=== PATIENT | female | born 1955 | race Caucasian/White ===

== ENCOUNTER 2017-04-13 00:41 | Emergency (ER) | payer OTHER ==
[2017-04-13 00:47] VITALS: BMI 29.2
[2017-04-13] MEDS ORDERED: ACETAMINOPHEN 500 MG TABLET (FP) PO ONE (01:11)
[2017-04-13 01:59] LABS: BASOPHIL 0.5 % (0-2.0); EOSINOPHIL 1.9 % (0-4.5); MCH 25.6 pg (25.7-33.7); MCHC 32.4 g/dl (32.0-36.0); MEAN CELL VOLUME 78.9 fl (80-96); MEAN PLT VOLUME 8.4 fl (7.5-11.1); NEUTROPHILS 63.1 % (42.8-82.8); PLATELET COUNT 240 K/MM3 (134-434); RDW 14.1 % (11.6-15.6); WHITE BLOOD COUNT 6.4 K/mm3 (4.0-10.0)
[2017-04-13] MEDS ORDERED: ACETAMINOPHEN 325 MG TABLET (FP) ONE (02:01)
--- NOTE | 2017-04-13 02:08 | PDOC ---
History of Present Illness - General Chief Complaint: Pain Stated Complaint: NECK PAIN Time Seen by Provider: 04/13/17 00:58 History Source: Patient Exam Limitations: No Limitations - History of Present Illness Initial Comments: 04/13/17 02:06 61yo Female patient presents to ED c/o chest pain and neck pain. Patient report she was watching TV when she feel asleep. Upon waking up patient felt pressure in chest, with right arm numbness and neck pain. She denies OTC medication use. Past History - Travel Traveled outside of the country in the last 30 days: No Close contact w/someone who was outside of country & ill: No - Past Medical History Allergies/Adverse Reactions: Allergies Allergy/AdvReac Type Severity Reaction Status Date / Time No Known Allergies Allergy Verified 04/13/17 00:45 Home Medications: Ambulatory Orders Aspirin [ASA -] 81 mg PO DAILY 07/23/14 Losartan Potassium 50 mg PO DAILY 07/23/14 Anemia: No Asthma: No Cancer: No Cardiac Disorders: No CVA: No COPD: No CHF: No Dementia: No Diabetes: No GI Disorders: No Disorders: No HTN: Yes Hypercholesterolemia: No Liver Disease: No Psychiatric Problems: Yes (depression) Seizures: No Thyroid Disease: No - Surgical History Abdominal Surgery: No (Hernia Repair) Appendectomy: No Cardiac Surgery: No Cholecystectomy: No Lung Surgery: No Neurologic Surgery: No Orthopedic Surgery: No - Immunization History Immunization Up to Date: Yes - Psycho/Social/Smoking Cessation Hx Anxiety: No Suicidal Ideation: No Smoking Status: No Smoking History: Never smoked Have you smoked in the past 12 months: No Number of Cigarettes Smoked Daily: 0 Information on smoking cessation initiated: No Hx Alcohol Use: No Drug/Substance Use Hx: No Substance Use Type: None Hx Substance Use Treatment: No Cardiac Specific PMH - Complaint Specific PMHX Pacemaker: No Review of Systems - Review of Systems Able to Perform ROS?: Yes Is the patient limited Maori proficient: No Constitutional: No: Chills, Fever Respiratory: No: Cough, Wheezing Cardiac (ROS): Yes: Chest Pain, Chest Tightness. No: Lightheadedness, Palpitations ABD/GI: No: Nausea, Poor Appetite, Poor Fluid Intake, Rectal Bleeding, Vomiting : No: Dysuria, Flank Pain, Hematuria Musculoskeletal: Yes: Neck Pain. No: Back Pain Integumentary: No: Bruising, Erythema, Rash Neurological: Yes: Headache. No: Seizure All Other Systems: Reviewed and Negative *Physical Exam - Vital Signs Last Vital Signs Temp Pulse Resp BP Pulse Ox 97.6 F 78 18 158/87 98 04/13/17 00:45 04/13/17 00:45 04/13/17 00:45 04/13/17 00:45 04/13/17 00:45 - Physical Exam General Appearance: Yes: Nourished, Appropriately Dressed. No: Apparent Distress, Mild Distress, Moderate Distress, Severe Distress Neck: positive: Trachea midline, Supple. negative: Decreased range of motion, Stridor, Lymphadenopathy (R), Lymphadenopathy (L), Tender lateral, Tender midline Respiratory/Chest: positive: Lungs Clear, Normal Breath Sounds. negative: Chest Tender, Respiratory Distress, Accessory Muscle Use, Labored Respiration, Rapid RR, Stridor, Wheezing Cardiovascular: positive: Regular Rhythm, Regular Rate Gastrointestinal/Abdominal: positive: Normal Bowel Sounds, Soft, Distended. negative: Tender, Guarding, Rebound, Tenderness Musculoskeletal: positive: Normal Inspection. negative: CVA Tenderness, Decreased Range of Motion, Muscle Spasm, Vertebral Tenderness Extremity: positive: Normal Capillary Refill, Normal Inspection, Normal Range of Motion. negative: Swelling, Calf Tenderness, Erythema, Inflammation Integumentary: positive: Normal Color, Dry, Warm. negative: Moist, Hives, Swelling, Bruising Neurologic: positive: compugraph operator II-XII NML intact, Fully Oriented, Alert, Normal Mood/ Affect, Normal Response, Motor Strength 5/5 ED Treatment Course - LABORATORY CBC & Chemistry Diagram: 04/13/17 01:44 04/13/17 01:44 - ADDITIONAL ORDERS Additional order review: 04/13/17 01:44 RBC 4.76 MCV 78.9 L MCHC 32.4 RDW 14.1 MPV 8.4 Neutrophils % 63.1 Lymphocytes % 26.1 Monocytes % 8.4 Eosinophils % 1.9 Basophils % 0.5 - RADIOLOGY Radiology Studies Ordered: Category Date Time Status HEAD CT WITHOUT CONTRAST [CT] Stat CT Scan 04/13/17 01:11 Ordered CHEST PA & LAT [RAD] Stat Radiology 04/13/17 01:11 Ordered
[2017-04-13 02:27] LABS: URINE APPEARANCE CLEAR; URINE BILIRUBIN NEGATIVE (NEGATIVE); URINE COLOR COLORLESS; URINE GLUCOSE (UA) NEGATIVE (NEGATIVE); URINE KETONE NEGATIVE (NEGATIVE); URINE LEUK ESTERASE NEGATIVE (NEGATIVE); URINE NITRITE NEGATIVE (NEGATIVE); URINE PROTEIN NEGATIVE (NEGATIVE); URINE UROBILINOGEN NEGATIVE E.U./dl (0.2-1.0)
[2017-04-13 02:30] LABS: URINE BLOOD 1+ (NEGATIVE)
[2017-04-13 02:32] LABS: URINE RBC 1 /hpf (0-3)
[2017-04-13 02:36] LABS: ALBUMIN 3.6 g/dl (3.4-5.0); ANION GAP 12 (8-16); BILIRUBIN,TOTAL 0.4 mg/dL (0.2-1.0); CALCIUM 9.1 mg/dL (8.5-10.1); CO2 24 mmol/L (21-32); CREATININE 0.9 mg/dL (0.55-1.02); GLUCOSE,RANDOM 123 mg/dL (74-106); SGOT/AST 24 U/L (15-37); SGPT/ALT 27 U/L (12-78); TOT PROT 6.9 g/dl (6.4-8.2)
[2017-04-13 02:39] LABS: ALK PHOS 75 U/L (45-117); TROPONIN I < 0.02 ng/ml (0.00-0.05)
[2017-04-13 08:11] LABS: TROPONIN I < 0.02 ng/ml (0.00-0.05)
--- NOTE | 2017-04-13 08:54 | PDOC ---
*Physical Exam - Vital Signs Last Vital Signs Temp Pulse Resp BP Pulse Ox 97.6 F 78 18 158/87 98 04/13/17 00:45 04/13/17 00:45 04/13/17 00:45 04/13/17 00:45 04/13/17 00:45 ED Treatment Course - LABORATORY CBC & Chemistry Diagram: 04/13/17 01:44 04/13/17 01:44 - ADDITIONAL ORDERS Additional order review: Laboratory Results 04/13/17 04/13/17 04/13/17 07:20 02:23 01:44 Sodium 142 Potassium 3.7 Chloride 106 Carbon Dioxide 24 Anion Gap 12 BUN 15 Creatinine 0.9 Creat Clearance w eGFR > 60 Random Glucose 123 H Calcium 9.1 Total Bilirubin 0.4 D AST 24 D ALT 27 Alkaline Phosphatase 75 Creatine Kinase 150 160 CK-MB (CK-2) < 1.000 1.201 Troponin I < 0.02 < 0.02 Total Protein 6.9 Albumin 3.6 Urine Color Colorless Urine Appearance Clear Urine pH 7.0 Urine Protein Negative Urine Glucose (UA) Negative Urine Ketones Negative Urine Blood 1+ H Urine Nitrite Negative Urine Bilirubin Negative Urine Urobilinogen Negative Ur Leukocyte Esterase Negative Urine RBC 1 Urine WBC None 04/13/17 01:44 RBC 4.76 MCV 78.9 L MCHC 32.4 RDW 14.1 MPV 8.4 Neutrophils % 63.1 Lymphocytes % 26.1 Monocytes % 8.4 Eosinophils % 1.9 Basophils % 0.5 - Medications Given in the ED: ED Medications Discontinued Medications Generic Name Dose Route Start Last Admin Trade Name Freq PRN Reason Stop Dose Admin Acetaminophen 1,000 mg 04/13/17 01:11 04/13/17 02:06 Tylenol - PO 04/13/17 01:12 1,000 mg ONCE ONE Administration Progress Note - Progress Note Progress Note: This patient was endorsed to me by Dr. Bang at 7 AM pending repeat troponin which was negative. I have reevaluated the patient at this time and she is well- appearing and is feeling improved. I've instructed the patient via oil and gas field technician to follow-up with her primary care physician within the next week and return to the emergency department if her symptoms persist, worsen, or new symptoms arise. *DC/Admit/Observation/Transfer Diagnosis at time of Disposition: Chest pain - Discharge Dispostion Disposition: HOME Condition at time of disposition: Stable Admit: No - Patient Instructions Printed Discharge Instructions: DI for Atypical Chest Pain Additional Instructions: Follow up with your primary care physician within one week and return to the emergency department if your symptoms persist, worsen, or new symptoms arise.
[2017-04-13 09:38] VITALS: BP 128/73; PULSE 60; TEMP 98.7
--- NOTE | 2017-04-13 16:26 | EKG ---
Test Reason : Blood Pressure : / mmHG Vent. Rate : 060 BPM Atrial Rate : 060 BPM P-R Int : 150 ms QRS Dur : 080 ms QT Int : 396 ms P-R-T Axes : 059 -12 -11 degrees QTc Int : 396 ms NORMAL SINUS RHYTHM POSSIBLE LEFT ATRIAL ENLARGEMENT BORDERLINE ECG WHEN COMPARED WITH ECG OF 24-JUL-2014 17:27, NO SIGNIFICANT CHANGE WAS FOUND Confirmed by BERONICA ELY MD ([id number]) on 04/13/2017 4:26:10 PM Referred By: Confirmed By:BERONICA ELY MD
== END 2017-04-13 09:43 | disposition home or self-care (01) ==
LOC: JER 00:41
DX: R07.89 Other chest pain (principal); I10 Essential (primary) hypertension; F32.9 Major depressive disorder, single episode, unspecified
CPT/HCPCS: 36415; 70450-TC; 71020-TC; 80053; 81003; 81015; 82550; 82553; 84484; 85025; 87086; 93005; 93010; 99285-25

== ENCOUNTER 2017-04-23 01:12 | Emergency (ER) | payer SELFPAY ==
--- NOTE | 2017-04-23 01:48 | PDOC ---
History of Present Illness - General History Source: Patient Exam Limitations: No Limitations - History of Present Illness Initial Comments: 04/23/17 02:16 The patient is a 61 year old female with significant past medical history of hypertension who presents to the ED for chest discomfort prior to arrival. Patient describes chest discomfort as a pressure-like sensation that radiated down the left arm and up the left-side of the neck. States she ran out of her blood pressure medications yesterday and after receiving them last night she took them prior to going to bed. Patient reports waking up prior to arrival with chest pressure with associated SOB. At time of evaluation, patient reports she still has chest pressure. Denies lightheadedness, diaphoresis, leg swelling , nausea, or vomiting. The patient denies fever, chills, cough, abdominal pain, and diarrhea. Allergies: NKDA Social History: No alcohol, tobacco, or drug use reported. Past Surgical History: hernia repair, PCP: Dr. Stevie Varma <Jacquelyn Ro - Last Filed: 04/23/17 02:17> - General History Source: Patient <Reg Cui - Last Filed: 04/23/17 04:38> - General Chief Complaint: Blood Pressure Problem Stated Complaint: BLOOD PRESSURE PROBLEM Time Seen by Provider: 04/23/17 01:44 Past History <Jacquelyn Ro - Last Filed: 04/23/17 02:17> - Past Medical History Anemia: No Asthma: No Cancer: No Cardiac Disorders: No CVA: No COPD: No CHF: No Dementia: No Diabetes: No GI Disorders: No Disorders: No HTN: Yes Hypercholesterolemia: No Liver Disease: No Psychiatric Problems: Yes (depression) Seizures: No Thyroid Disease: No - Surgical History Abdominal Surgery: No (Hernia Repair) Appendectomy: No Cardiac Surgery: No Cholecystectomy: No Lung Surgery: No Neurologic Surgery: No Orthopedic Surgery: No - Immunization History Immunization Up to Date: Yes - Psycho/Social/Smoking Cessation Hx Anxiety: No Suicidal Ideation: No Smoking Status: No Smoking History: Never smoked Have you smoked in the past 12 months: No Number of Cigarettes Smoked Daily: 0 Information on smoking cessation initiated: No Hx Alcohol Use: No Drug/Substance Use Hx: No Substance Use Type: None Hx Substance Use Treatment: No <Reg Cui - Last Filed: 04/23/17 04:38> - Past Medical History Allergies/Adverse Reactions: Allergies Allergy/AdvReac Type Severity Reaction Status Date / Time No Known Allergies Allergy Verified 04/13/17 00:45 Home Medications: Ambulatory Orders Aspirin [ASA -] 81 mg PO DAILY 07/23/14 Losartan Potassium 50 mg PO DAILY 07/23/14 Paroxetine HCl 10 mg PO DAILY 04/23/17 Review of Systems - Review of Systems Able to Perform ROS?: Yes Comments:: 04/23/17 02:16 CONSTITUTIONAL: Absent: fever, no chills, no fatigue EYES: Absent: visual changes ENT: Absent: ear pain, no sore throat CARDIOVASCULAR: +left-sided chest pressure radiating down the left arm and up the left-sided of the neck Absent: no palpitations RESPIRATORY: +SOB Absent: cough GI: Absent: abdominal pain, no nausea, no vomiting, no constipation, no diarrhea GENITOURINARY: Absent: dysuria, no frequency, no hematuria MUSCULOSKELETAL: Absent: back pain SKIN: Absent: rash NEURO: Absent: headache <Jacquelyn Ro - Last Filed: 04/23/17 02:17> *Physical Exam - Vital Signs Last Vital Signs Temp Pulse Resp BP Pulse Ox 98.1 F 61 18 160/90 98 04/23/17 01:26 04/23/17 01:04/23/17 01:04/23/17 01:04/23/17 01:26 - Physical Exam Comments: 04/23/17 02:16 GENERAL: Well-appearing, well-nourished. No apparent distress. HEENT: Normocephalic, atraumatic. PERRL, EOM intact. CARDIOVASCULAR: Normal S1, S2. Regular rate and rhythm. PULMONARY: Clear to auscultation bilaterally. ABDOMEN: Soft, non-distended, non-tender. EXTREMITIES: Normal ROM in all four extremities. No gross deformities. SKIN: Warm, dry. No rash NEUROLOGICAL: No focal neurological deficits. <Jacquelyn Ro - Last Filed: 04/23/17 02:17> - Vital Signs Last Vital Signs Temp Pulse Resp BP Pulse Ox 98.1 F 61 18 160/90 98 04/23/17 01:04/23/17 01:04/23/17 01:04/23/17 01:26 04/23/17 01:26 <Reg Cui - Last Filed: 04/23/17 04:38> Heart Score/ECG Review - ECG Impressions Comment:: 04/23/17 02:17 NSR @63bpm Possible L atrial enlargement Borderline ECG <Jacquelyn Ro - Last Filed: 04/23/17 02:17> ED Treatment Course - LABORATORY CBC & Chemistry Diagram: 04/23/17 02:15 04/23/17 02:15 <Reg Cui - Last Filed: 04/23/17 04:38> Medical Decision Making - Medical Decision Making 04/23/17 04:37 Dr. Cui: The scribe's documentation has been prepared under my direction and personally reviewed by me in its entirery. I confirm that the note above accurately reflects all work, treatment, procedures, and medical decision making performed by me. Pt is chest pain free. Labs are stable. Will discharge <Reg Cui - Last Filed: 04/23/17 04:38> *DC/Admit/Observation/Transfer - Attestations Scribe Attestion: 04/23/17 02:17 Documentation prepared by Jacquelyn Ro, acting as medical surgery nurse for Reg Cui MD/DO. <Jacquelyn Ro - Last Filed: 04/23/17 02:17> - Discharge Dispostion Admit: No <Reg Cui - Last Filed: 04/23/17 04:38> Diagnosis at time of Disposition: Chest pain Qualifiers: Chest pain type: other chest pain Qualified Code(s): R07.89 - Other chest pain ; R07.8 - Other chest pain Hypertension Qualifiers: Hypertension type: essential hypertension Qualified Code(s): I10 - Essential ( primary) hypertension - Discharge Dispostion Disposition: HOME Condition at time of disposition: Stable - Referrals Referrals: Stevie Varma [Primary Care Provider] - - Patient Instructions Printed Discharge Instructions: DI for High Blood Pressure
[2017-04-23 02:01] VITALS: TEMP 98.1; BMI 30.1
[2017-04-23 02:23] LABS: MCH 25.4 pg (25.7-33.7); MCHC 31.9 g/dl (32.0-36.0); MEAN CELL VOLUME 79.7 fl (80-96); MEAN PLT VOLUME 8.1 fl (7.5-11.1); NEUTROPHILS 61.1 % (42.8-82.8); PLATELET COUNT 249 K/MM3 (134-434); RDW 14.2 % (11.6-15.6); WHITE BLOOD COUNT 5.9 K/mm3 (4.0-10.0)
[2017-04-23 02:35] LABS: INR 1.04 (0.82-1.09); PROTHROMBIN TIME (PATIENT) 11.5 SEC (9.98-11.88)
[2017-04-23 03:03] LABS: ALBUMIN 3.7 g/dl (3.4-5.0); ANION GAP 9 (8-16); BILIRUBIN,TOTAL 0.4 mg/dL (0.2-1.0); CALCIUM 8.9 mg/dL (8.5-10.1); CO2 27 mmol/L (21-32); GLUCOSE,RANDOM 124 mg/dL (74-106); SGOT/AST 21 U/L (15-37); SGPT/ALT 28 U/L (12-78)
[2017-04-23 03:05] LABS: ALK PHOS 68 U/L (45-117); TROPONIN I < 0.02 ng/ml (0.00-0.05)
[2017-04-23 05:00] VITALS: BP 135/78; PULSE 78
--- NOTE | 2017-04-23 12:59 | EKG ---
Test Reason : Blood Pressure : / mmHG Vent. Rate : 063 BPM Atrial Rate : 063 BPM P-R Int : 160 ms QRS Dur : 084 ms QT Int : 420 ms P-R-T Axes : 054 -13 -10 degrees QTc Int : 429 ms NORMAL SINUS RHYTHM POSSIBLE LEFT ATRIAL ENLARGEMENT BORDERLINE ECG WHEN COMPARED WITH ECG OF 13-APR-2017 02:16, NO SIGNIFICANT CHANGE WAS FOUND Confirmed by OSEAS DOUGLAS MD ([id number]) on 04/23/2017 12:59:25 PM Referred By: Confirmed By:OSEAS DOUGLAS MD
== END 2017-04-23 04:55 | disposition home or self-care (01) ==
LOC: JER 01:12
DX: R07.89 Other chest pain (principal); I10 Essential (primary) hypertension
CPT/HCPCS: 36415; 80053; 82550; 82553; 84484; 85025; 85610; 93005; 93010; 99282-25

== ENCOUNTER 2019-10-16 06:03 | Emergency (ER) | payer MEDICARE, OTHER ==
[2019-10-16 06:27] VITALS: BMI 31.7
--- NOTE | 2019-10-16 08:28 | PDOC ---
Attending Attestation - Resident Resident Name: Kathleen Jhaveri - ED Attending Attestation I have performed the following: I have examined & evaluated the patient, The case was reviewed & discussed with the resident, I agree w/resident's findings & plan, Exceptions are as noted - HPI HPI: 10/16/19 11:15 Presents to the emergency department with reproducible nonexertional right- sided chest pain x1 week worse with [id number] years old past medical history significant for hypertension high cholesterol. No dizziness no lightheadedness no shortness of breath no diaphoresis pain is worse with movement alleviated at rest last episode was last night no pain today - Physicial Exam PE: 10/16/19 11:15 Insert my physical Vitals: Triage Vital signs reviewed General Appearance: No acute distress, well nourished well developed, Neck: Supple; no Nucal rigidity Chest Wall: Nontender Cardiac: Regular rate and rhythym, no murmurs, no rubs, no gallops, Lungs: Clear to auscultation bilateral, good air movement bilaterally, Abdomen: Soft, non distended, normal bowel sounds, non tender to palpation Extremities: Full range of motion to all extremities, no cyanosis, clubbing, or edema Skin: Warm and dry, no rashes or lesions, no rash, no petechiae or other soft Psych: Normal mood, normal affect - Medical Decision Making 10/16/19 11:16 Heart score for only given mild obesity very atypical chest discomfort reproducible EKG demonstrates normal sinus rhythm no ST elevations Interpreted by me First troponin negative Given atypical chest discomfort we will check a second troponin Reevaluation: 2nd Troponin Negative. Will dc home with followup
--- NOTE | 2019-10-16 08:29 | PDOC ---
History of Present Illness - General Chief Complaint: Chest Pain Stated Complaint: PAIN/RT SIDE Time Seen by Provider: 10/16/19 07:39 - History of Present Illness Initial Comments: 10/16/19 08:22 Ms. Ted Ellis is a 64 yo lady with a pmhx of HTN who presents with a 1 day hx of R sided cp and also a 1 week hx of pain in her upper extremities bilaterally. The patient states that a week ago she started noticing bilateral pain in her upper extremities both at rest and with movement that is worse with palpation. Last night she started having episodes of R sided CP which she describes as intermittent "stabbing" and lasting less than 1 min. She states she tried taking advil which did not help and ASA which did help. Currently she is pain free. On ROS she denies SOB, heart palpitations, dizziness, numbness or tingling in her hands or feet, swelling in her arms or legs, nausea, vomiting, diarrhea, constipation, or diaphoresis. 10/16/19 08:33 Past History - Travel Traveled outside of the country in the last 30 days: No Close contact w/someone who was outside of country & ill: No - Past Medical History Allergies/Adverse Reactions: Allergies Allergy/AdvReac Type Severity Reaction Status Date / Time No Known Allergies Allergy Verified 10/16/19 06:27 Home Medications: Ambulatory Orders Aspirin [ASA -] 81 mg PO DAILY 07/23/14 Losartan Potassium 50 mg PO DAILY 07/23/14 Anemia: No Asthma: No Cancer: No Cardiac Disorders: No CVA: No COPD: No CHF: No Dementia: No Diabetes: No GI Disorders: No Disorders: No HTN: Yes Hypercholesterolemia: No Liver Disease: No Psychiatric Problems: Yes (depression) Seizures: No Thyroid Disease: No - Surgical History Abdominal Surgery: Yes (Hernia Repair) Appendectomy: No Cardiac Surgery: No Cholecystectomy: No Lung Surgery: No Neurologic Surgery: No Orthopedic Surgery: No - Immunization History Immunization Up to Date: Yes - Psycho Social/Smoking Cessation Hx Smoking Status: No Smoking History: Never smoked Have you smoked in the past 12 months: No Number of Cigarettes Smoked Daily: 0 Hx Alcohol Use: No Drug/Substance Use Hx: No Substance Use Type: None Hx Substance Use Treatment: No Review of Systems - Review of Systems Able to Perform ROS?: Yes Is the patient limited Kyrgyz proficient: No Constitutional: No: Chills, Diaphoresis, Fever, Loss of Appetite HEENTM: No: Eye Pain, Recent change in vision, Ear Pain, Nose Pain, Throat Pain Respiratory: No: Cough, Orthopnea, Shortness of Breath Cardiac (ROS): Yes: Chest Pain (R sided "stabbing" CP) ABD/GI: No: Abdominal Distended, Constipated, Diarrhea, Nausea, Vomiting, Abdominal cramping : No: Burning, Dysuria, Discharge Musculoskeletal: Yes: Muscle Pain (bilateral upper extremity pain). No: Back Pain, Muscle Weakness Integumentary: No: Bruising, Flushing, Pruritus, Rash Neurological: No: Headache, Numbness, Paresthesia, Tingling Endocrine: No: Excessive Sweating, Intolerance to Cold, Intolerance to Heat Hematologic/Lymphatic: No: Blood Clots, Easy Bruising All Other Systems: Reviewed and Negative *Physical Exam - Vital Signs Last Vital Signs Temp Pulse Resp BP Pulse Ox 72 18 145/82 97 10/16/19 06:26 10/16/19 06:26 10/16/19 06:26 10/16/19 06:26 - Physical Exam General Appearance: Yes: Nourished, Appropriately Dressed, Obese. No: Apparent Distress HEENT: positive: EOMI, [place], Normal ENT Inspection, Pharynx Normal Neck: positive: Trachea midline, Supple. negative: Tender Respiratory/Chest: positive: Lungs Clear, Normal Breath Sounds. negative: Respiratory Distress, Accessory Muscle Use, Rales, Stridor, Wheezing Cardiovascular: positive: Regular Rhythm, Regular Rate, S1, S2. negative: Murmur Gastrointestinal/Abdominal: positive: Normal Bowel Sounds, Soft. negative: Tender, Organomegaly Extremity: positive: Normal Capillary Refill, Normal Inspection, Normal Range of Motion, Tender (mildly TTP bilaterally but no swelling, edema, or discoloration of the skin) Integumentary: positive: Normal Color, Dry, Warm Neurologic: positive: field support engineer II-XII NML intact, Fully Oriented, Alert, Normal Mood/ Affect, Normal Response, Motor Strength 5/5 Heart Score/ECG Review - History History: Moderately suspicious - Electrocardiogram EKG: Normal - Age Age: >/= 65 - Risk Factors Risk Factors Heart Score: Yes Hx Hypertension, Yes Hx Obesity Based on the list above the patient has:: 1-2 risk factors - ECG Intrepretation Rhythm: Regular Rhythm - [place]: Normal - P and MI Prominent R with upright T in V1 (true posterior [place]): No Delta Wave(s) Present: No WPW: No - QRS Poor R Wave Progression: No Q Wave Present: No - ST and T Early Repolarization: No Non Specific ST-T Wave changes: No Flattened T Waves: No Prolonged Q-T Interval: No - ECG Impressions Normal ECG: Yes Non-specific ST Elevation: No Ischemic Changes: No ED Treatment Course - LABORATORY CBC & Chemistry Diagram: 10/16/19 08:40 10/16/19 08:40 Medical Decision Making - Medical Decision Making 10/16/19 08:29 Ms. Ted Ellis is a 64 yo lady with a pmhx of HTN who presents with a 1 day hx of R sided cp and also a 1 week hx of pain in her upper extremities bilaterally. Pt states the pain is intermittent and currently she is pain free. Pt has a HEART score of 4 given that she is a 64F with a moderately suspicious story and has RF of HTN and obesity. EKG was normal with NSR and QTc of 420. Will Obtain: - CBC - CMP - Troponin x2 - EKG Dispo: Pt has stable vitals, a normal EKG and is currently chest pain free, if both troponins are negative patient will be stable for DC home and plans to follow up with her PCP within the next week. 10/16/19 10:44 Initial troponin is negative, patient without pain. Will draw second trop, pt likely stable for d/c home. 10/16/19 12:31 Second troponin is negative, patient is stable for discharge home and counselled to follow up with her PCP Discharge - Discharge Information Problems reviewed: Yes Clinical Impression/Diagnosis: Chest pain Qualifiers: Chest pain type: unspecified Qualified Code(s): R07.9 - Chest pain, unspecified Condition: Stable Disposition: HOME - Admission No - Follow up/Referral Referrals: Stevie Varma [Primary Care Provider] - 1 week - Patient Discharge Instructions Patient Printed Discharge Instructions: DI for Atypical Chest Pain, DI for Chest Pain Additional Instructions: You were in the hospital because you were having chest pains. While you were here you had blood work done and an ECG to check the function of your heart. Your ECG and labs were normal. Your pain had resolved and your vital signs were stable while you were here. Please follow up with your primary care doctor within 1 week. Please return to the emergency department immediately if you have worsening symptoms including chest pains, chest pain radiating to your arm or back, shortness of breath, or new weakness. - Post Discharge Activity
[2019-10-16 09:08] LABS: BASO % 0.7 % (0-2.0); EOS % 1.7 % (0-4.5); HEMATOCRIT 38.8 % (32.4-45.2); HEMOGLOBIN 12.6 GM/dL (10.7-15.3); LYMPH % 30.3 % (8-40); MCH 25.9 pg (25.7-33.7); MCHC 32.5 g/dl (32.0-36.0); MEAN CELL VOLUME 79.6 fl (80-96); MEAN PLT VOLUME 8.1 fl (7.5-11.1); MONO % 7.2 % (3.8-10.2); NEUT % 60.1 % (42.8-82.8); PLATELET COUNT 279 K/MM3 (134-434); RBC 4.88 M/mm3 (3.60-5.2); RDW 14.2 % (11.6-15.6); WHITE BLOOD COUNT 4.6 K/mm3 (4.0-10.0)
[2019-10-16 09:48] LABS: ALBUMIN 3.7 g/dl (3.4-5.0); ALK PHOS 69 U/L (45-117); ANION GAP 8 MMOL/L (8-16); BILIRUBIN,TOTAL 0.5 mg/dL (0.2-1); BLOOD UREA NITROGEN 14.4 mg/dL (7-18); CALCIUM 8.9 mg/dL (8.5-10.1); CHLORIDE 105 mmol/L (98-107); CO2 27 mmol/L (21-32); CREATININE 0.8 mg/dL (0.55-1.3); GLUCOSE,RANDOM 103 mg/dL (74-106); POTASSIUM 4.6 mmol/L (3.5-5.1); SGOT/AST 27 U/L (15-37); SGPT/ALT 32 U/L (13-61); SODIUM 140 mmol/L (136-145); TOT PROT 6.7 g/dl (6.4-8.2)
[2019-10-16 13:01] VITALS: BP 118/78; PULSE 73; TEMP 97.8
--- NOTE | 2019-10-16 23:12 | EKG ---
Test Reason : Blood Pressure : / mmHG Vent. Rate : 062 BPM Atrial Rate : 062 BPM P-R Int : 160 ms QRS Dur : 074 ms QT Int : 414 ms P-R-T Axes : 048 005 -08 degrees QTc Int : 420 ms NORMAL SINUS RHYTHM NORMAL ECG WHEN COMPARED WITH ECG OF 23-APR-2017 02:10, NO SIGNIFICANT CHANGE WAS FOUND Confirmed by KARYN KEENE MD ([id number]) on 10/16/2019 11:11:56 PM Referred By: Confirmed By:KARYN KEENE MD
== END 2019-10-16 13:05 | disposition home or self-care (01) ==
LOC: JER 06:03
DX: R07.9 Chest pain, unspecified (principal); I10 Essential (primary) hypertension; F32.9 Major depressive disorder, single episode, unspecified
CPT/HCPCS: 36415; 71045-TC-FY; 80053; 84484; 85025; 93005; 93010; 99285-25

== ENCOUNTER 2020-12-27 07:12 | Observation (INO) | payer OTHER ==
[2020-12-27 07:34] VITALS: BMI 33.1
[2020-12-27] MEDS ORDERED: ACETAMINOPHEN 1000 MG/100 ML VIAL (NON FORMULARY) IVPB ONE (07:54)
[2020-12-27] MEDS ORDERED: SODIUM CHLORIDE 1,000 ML IV STA (07:54)
[2020-12-27] MEDS ORDERED: ACETAMINOPHEN INJECTION 0 ML IVPB ONE (09:32)
[2020-12-27] MEDS ORDERED: ACETAMINOPHEN INJECTION 100 ML IVPB ONE (09:37)
[2020-12-27 09:53] LABS: BASO % 0.4 % (0-2.0); EOS % 1.1 % (0-4.5); HEMATOCRIT 39.4 % (32.4-45.2); HEMOGLOBIN 12.9 GM/dL (10.7-15.3); LYMPH % 19.5 % (8-40); MCHC 32.8 g/dl (32.0-36.0); MEAN CELL VOLUME 79.3 fl (80-96); MEAN PLT VOLUME 8.5 fl (7.5-11.1); MONO % 7.3 % (3.8-10.2); NEUT % 71.7 % (42.8-82.8); PLATELET COUNT 307 K/MM3 (134-434); RBC 4.96 M/mm3 (3.60-5.2); RDW 14.5 % (11.6-15.6); WHITE BLOOD COUNT 6.7 K/mm3 (4.0-10.0)
[2020-12-27 09:55] LABS: URINE APPEARANCE CLEAR; URINE BILIRUBIN NEGATIVE (NEGATIVE); URINE COLOR YELLOW; URINE GLUCOSE (UA) NEGATIVE (NEGATIVE); URINE KETONE NEGATIVE (NEGATIVE); URINE LEUK ESTERASE NEGATIVE (NEGATIVE); URINE NITRITE NEGATIVE (NEGATIVE); URINE PROTEIN NEGATIVE (NEGATIVE); URINE UROBILINOGEN 0.2 mg/dL (0.2-1.0)
[2020-12-27 10:04] LABS: CHLORIDE 105 mmol/L (98-107); POTASSIUM 5.1 mmol/L (3.5-5.1); SODIUM 139 mmol/L (136-145)
[2020-12-27 10:07] LABS: ALBUMIN 3.8 g/dl (3.4-5.0); ANION GAP 7 MMOL/L (8-16); BLOOD UREA NITROGEN 18.9 mg/dL (7-18); CALCIUM 9.2 mg/dL (8.5-10.1); CO2 27 mmol/L (21-32); INR 0.92 (0.83-1.09); PROTHROMBIN TIME (PATIENT) 11.2 SEC (9.7-13.0)
[2020-12-27 10:08] LABS: GLUCOSE,RANDOM 96 mg/dL (74-106); MAGNESIUM 2.3 mg/dL (1.8-2.4)
[2020-12-27 10:10] LABS: SGPT/ALT 33 U/L (13-61)
[2020-12-27 10:11] LABS: BILIRUBIN,TOTAL 0.4 mg/dL (0.2-1); SGOT/AST 36 U/L (15-37); TOT PROT 7.4 g/dl (6.4-8.2)
[2020-12-27 10:12] LABS: ALK PHOS 75 U/L (45-117)
[2020-12-28 07:25] LABS: BASO % 0.5 % (0-2.0); EOS % 2.2 % (0-4.5); HEMATOCRIT 36.7 % (32.4-45.2); HEMOGLOBIN 11.9 GM/dL (10.7-15.3); LYMPH % 30.5 % (8-40); MCH 25.6 pg (25.7-33.7); MCHC 32.4 g/dl (32.0-36.0); MEAN PLT VOLUME 8.5 fl (7.5-11.1); MONO % 7.9 % (3.8-10.2); NEUT % 58.9 % (42.8-82.8); PLATELET COUNT 263 K/MM3 (134-434); RBC 4.65 M/mm3 (3.60-5.2); RDW 14.9 % (11.6-15.6)
[2020-12-28 08:01] LABS: CHLORIDE 107 mmol/L (98-107); POTASSIUM 4.6 mmol/L (3.5-5.1); SODIUM 139 mmol/L (136-145)
[2020-12-28 08:17] LABS: ALBUMIN 3.5 g/dl (3.4-5.0); ANION GAP 6 MMOL/L (8-16); CO2 27 mmol/L (21-32); MAGNESIUM 2.3 mg/dL (1.8-2.4)
[2020-12-28 08:20] LABS: GLUCOSE,RANDOM 99 mg/dL (74-106); SGOT/AST 24 U/L (15-37); SGPT/ALT 28 U/L (13-61)
[2020-12-28 08:21] LABS: TOT PROT 6.8 g/dl (6.4-8.2)
[2020-12-28 08:23] LABS: CHOLESTEROL 220 mg/dL (50-200); LDL CHOLESTEROL (ONLY SJRH) 128 mg/dL (5-100); PHOSPHOROUS 3.6 mg/dL (2.5-4.9); TRIGLYCERIDES 179 mg/dL (0-150)
[2020-12-28 08:24] LABS: ALK PHOS 64 U/L (45-117); BILIRUBIN,TOTAL 0.5 mg/dL (0.2-1)
[2020-12-28 08:26] LABS: HDL CHOLESTEROL 58 mg/dL (40-60)
[2020-12-28] MEDS ORDERED: ENOXAPARIN NA (PORCINE) 40 MG/0.4 ML DISP.SYRIN SQ SCH (10:00)
[2020-12-28] MEDS ORDERED: ASPIRIN 81 MG CHEWABLE TABLETS PO SCH (10:00)
[2020-12-28] MEDS ORDERED: HYDROCHLOROTHIAZIDE 12.5 MG CAPSULE (FP) PO SCH (10:00)
[2020-12-28] MEDS ORDERED: LOSARTAN POTASSIUM 50 MG TABLET PO SCH (10:00)
[2020-12-28] MEDS ORDERED: amLODIPine BESYLATE 5 MG TABLET (FP) PO SCH (10:00)
[2020-12-28 14:05] VITALS: BP 107/52; PULSE 58; TEMP 98.3
== END 2020-12-28 17:37 | disposition home or self-care (01) ==
LOC: JER 07:12 → SUPCPDRO 07:12 → INTOOBSV 13:11 → UNDOADMOB 13:11 → JERBED 13:11 → J4S 12-28 06:49
PROVIDERS: ADMIT Internal Medicine; ATTEND Nurse Practitioner Family
PROC: 3E033NZ Introduction of Analgesics, Hypnotics, Sedatives into Peripheral Vein, Percutaneous Approach (ICD-10-PCS; principal; 2020-12-27)
PROC: 3E023GC Introduction of Other Therapeutic Substance into Muscle, Percutaneous Approach (ICD-10-PCS; 2020-12-27)
PROC: 3E0337Z Introduction of Electrolytic and Water Balance Substance into Peripheral Vein, Percutaneous Approach (ICD-10-PCS; 2020-12-27)
DX: R07.89 Other chest pain (principal); I10 Essential (primary) hypertension; E78.5 Hyperlipidemia, unspecified; I65.29 Occlusion and stenosis of unspecified carotid artery; S20.229A Contusion of unspecified back wall of thorax, initial encounter; F32.9 Major depressive disorder, single episode, unspecified; Z87.738 Personal history of other specified (corrected) congenital malformations of digestive system; M54.5 Low back pain; E66.9 Obesity, unspecified; Z68.33 Body mass index [BMI] 33.0-33.9, adult; Z29.9 Encounter for prophylactic measures, unspecified; Y92.89 Other specified places as the place of occurrence of the external cause
CPT/HCPCS: 36415; 71046-TC-FY; 80053; 80061; 81003; 82550; 82553; 83721; 83735; 84100; 84484; 85025; 85610; 87086; 87804; 93005; 93010; 96361; 96372; 96374; 99285-25; C9803; G0378; J0131; U0003

== ENCOUNTER 2022-05-15 07:33 | Emergency (ER) | payer OTHER ==
[2022-05-15 07:43] VITALS: BP 105/65; PULSE 77; TEMP 98.8; BMI 32.8
== END 2022-05-15 08:50 | disposition home or self-care (01) ==
LOC: JERFT 07:33
DX: R05.1 Acute cough (principal)
CPT/HCPCS: 71046-TC-FY; 99284-25; C9803-CS; U0003; U0005

== ENCOUNTER 2022-11-13 02:28 | Emergency (ER) | payer OTHER ==
[2022-11-13 02:31] VITALS: BMI 32.2
[2022-11-13 06:22] LABS: BASO % 0.4 % (0-2.0); EOS % 1.2 % (0-4.5); HEMATOCRIT 36.8 % (32.4-45.2); HEMOGLOBIN 11.6 GM/dL (10.7-15.3); LYMPH % 26.2 % (8-40); MCH 24.8 pg (25.7-33.7); MCHC 31.7 g/dl (32.0-36.0); MEAN CELL VOLUME 78.4 fl (80-96); MEAN PLT VOLUME 7.7 fl (7.5-11.1); MONO % 7.1 % (3.8-10.2); NEUT % 65.1 % (42.8-82.8); PLATELET COUNT 313 10^3/uL (134-434); RBC 4.69 M/mm3 (3.60-5.2); WHITE BLOOD COUNT 5.7 K/mm3 (4.0-10.0)
[2022-11-13 06:39] LABS: ALBUMIN 3.8 g/dl (3.4-5.0); BLOOD UREA NITROGEN 17.8 mg/dL (7-18); CALCIUM 9.6 mg/dL (8.5-10.1); MAGNESIUM 2.3 mg/dL (1.8-2.4)
[2022-11-13 06:42] LABS: CREATININE 1.1 mg/dL (0.55-1.3)
[2022-11-13 06:44] LABS: BILIRUBIN,TOTAL 0.3 mg/dL (0.2-1); TOT PROT 6.9 g/dl (6.4-8.2)
[2022-11-13 06:47] LABS: N-TERMINAL BNP 111.8 pg/ml (5-125)
[2022-11-13 08:50] VITALS: BP 140/78; PULSE 85; RESP 18; TEMP 98.7
== END 2022-11-13 08:50 | disposition home or self-care (01) ==
LOC: JER 02:28
DX: R06.02 Shortness of breath (principal); M54.6 Pain in thoracic spine
CPT/HCPCS: 0241U-QW; 36415; 71046-TC-FY; 80053; 83735; 83880; 84484; 85025; 85730; 93005; 93010; 99285-25